=== PATIENT | female | born 1950 | race Caucasian/White ===

== ENCOUNTER 2018-10-07 08:03 | Observation (INO) | payer BC, MEDICARE, OTHER ==
[~2018-10-07] VITALS: Ht 167.6 cm; Wt 84.1 kg
[2018-10-07] MEDS ORDERED: SODIUM CHLORIDE 0.9% 1,000 ML IV SCH ×3 (09:01→09:30)
[2018-10-07 09:23] VITALS: BP 117/86
[2018-10-07] MEDS ORDERED: ROSU20TA2 PO (09:23)
[2018-10-07] MEDS ORDERED: ASPI81TA45 PO (09:23)
[2018-10-07] MEDS ORDERED: DILT180C72 PO (09:23)
[2018-10-07] MEDS ORDERED: LEVO100T5 PO (09:23)
[2018-10-07] MEDS ORDERED: LOSA50TA14 PO (09:23)
[2018-10-07] MEDS ORDERED: PLEASE ENTER HEIGHT AND WEIGHT MC SCH (09:30)
[2018-10-07] MEDS ORDERED: FENTANYL PF 250 MCG/5ML ONE (10:13)
[2018-10-07] MEDS ORDERED: MIDAZOLAM 1 MG/ML, 2ML ONE (10:13)
[2018-10-07] MEDS ORDERED: ROCURONIUM 10MG/ML,5ML ONE (10:14)
[2018-10-07] MEDS ORDERED: ONDANSETRON 2MG/ML, 2ML ONE (10:14)
[2018-10-07] MEDS ORDERED: DEXAMETHASONE 4 MG/ML, 1ML ONE (10:14)
[2018-10-07] MEDS ORDERED: PROPOFOL 10 MG/ML, 20ML ONE ×3 (10:14→10:16)
[2018-10-07] MEDS ORDERED: SUCCINYLCHOLINE 20 MG/ML, 10ML ONE (10:14)
[2018-10-07] MEDS ORDERED: LIDOCAINE-MPF 2% ,5ML ONE (10:16)
[2018-10-07] MEDS ORDERED: LIDOCAINE 1%, 20ML ONE (11:14)
[2018-10-07] MEDS ORDERED: HEPARIN 1,000 UNITS/ML, 10ML ONE ×2 (11:38→12:08)
[2018-10-07] MEDS ORDERED: NEOSTIGMINE 1 MG/ML, 10ML ONE (12:08)
[2018-10-07] MEDS ORDERED: GLYCOPYRROLATE 0.4 MG/2 ML, 2ML ONE (12:08)
[2018-10-07] MEDS ORDERED: ACETAMINOPHEN 325 MG TABLET PO PRN ×2 (12:30)
[2018-10-07] MEDS ORDERED: FENTANYL PF 100 MCG/2ML IV PRN (12:30)
[2018-10-07] MEDS ORDERED: EPHEDRINE 50 MG/ML, 1ML IVPush PRN (12:30)
[2018-10-07] MEDS ORDERED: MORPHINE SULFATE 4 MG/ML, 1ML IVPush PRN (12:30)
[2018-10-07] MEDS ORDERED: ONDANSETRON 2MG/ML, 2ML IV PRN (12:30)
[2018-10-07] MEDS ORDERED: DIAZEPAM 5 MG/ML, 2ML IVPush PRN (12:30)
[2018-10-07] MEDS ORDERED: PROMETHAZINE 25 MG/ML, 1ML IV PRN (12:30)
[2018-10-07] MEDS ORDERED: hydrALAzine 20 MG/ML, 1ML IV PRN (12:30)
[2018-10-07] MEDS ORDERED: MEPERIDINE/PF 25MG/0.5ML IVPush PRN (12:30)
[2018-10-07] MEDS ORDERED: PROMETHAZINE 12.5 MG SUPP PR PRN (12:30)
[2018-10-07] MEDS ORDERED: ALBUTEROL SULFATE 2.5 MG/3 ML NPPB PRN (12:30)
[2018-10-07] MEDS ORDERED: HALOPERIDOL 5 MG/ML IV PRN (12:30)
[2018-10-07] MEDS ORDERED: MIDAZOLAM 1 MG/ML, 2ML IV PRN (12:30)
[2018-10-07] MEDS ORDERED: ONDANSETRON ODT 8 MG PO PRN (12:30)
[2018-10-07] MEDS ORDERED: LABETALOL 5MG/ML, 20ML IV PRN (12:30)
[2018-10-07] MEDS ORDERED: HYDROmorphone 2 MG/ML, 1ML IVPush PRN (12:30)
[2018-10-07] MEDS ORDERED: OXYcodone 5 MG/5 ML ORAL.SOL UDC PO PRN (12:30)
[2018-10-07 14:35] VITALS: BP 99/63
[2018-10-07 18:55] VITALS: BP 94/64
[2018-10-07] MEDS ORDERED: ATORVASTATIN 80 MG TABLET PO SCH (21:00)
[2018-10-08 03:20] VITALS: BP 96/55
[2018-10-08 07:32] VITALS: BP 109/70
[2018-10-08] MEDS ORDERED: ASPIRIN 81 MG TABLET EC PO SCH (09:00)
[2018-10-08] MEDS ORDERED: LOSARTAN 50MG TABLET PO SCH (09:00)
[2018-10-08] MEDS ORDERED: LEVOTHYROXINE 100 MCG TABLET PO SCH (09:00)
== END 2018-10-08 09:58 | disposition home or self-care (01) ==
LOC: CACL 08:03 → 5SO 12:09 → CACL 12:09 → 5SO 13:56 → DCLOUNGE 10-08 09:48
PROVIDERS: ADMIT Internal Medicine Cardiovascular Disease; ATTEND Internal Medicine Cardiovascular Disease
DX: I47.1 Supraventricular tachycardia (principal); I48.92 Unspecified atrial flutter; R00.2 Palpitations
CPT/HCPCS: 93312; 93321; 93325; 93462; 93613; 93621; 93653; 93662; C1730; C1759; C1766; C1893; C1894; C2630; G0378; J0330; J1100; J1644; J2250; J2405; J2704; J2710; J3010; J3490